=== PATIENT | male | born 1935 | race Caucasian/White ===

== ENCOUNTER → 2017-02-26 | Outpatient (CLI) | payer MEDICARE ==
[2017-02-26 13:22] LABS: ANION GAP 8 MEQ/L (5-15); AST (GOT) 15 U/L (15-37); BICARBONATE 25.5 MEQ/L (21.0-32.0); BLOOD UREA NITROGEN 12 MG/DL (7-18); CHLORIDE 104 MEQ/L (98-107); GLOMERULAR FILTRATION RATE 75 ML/MIN (>89); GLUCOSE,FASTING 103 MG/DL (74-99); POTASSIUM 4.3 MEQ/L (3.5-5.1); SODIUM (NA) 137 MEQ/L (136-145)
[2017-02-26 13:26] LABS: ALKALINE PHOSPHATASE 59 U/L (45-117); ALT (GPT) 21 U/L (12-78); HDL CHOLESTEROL 43.7 MG/DL (40.0-60.0); LDL CHOLESTEROL 103 MG/DL (0-99); TOTAL BILIRUBIN ADULT 0.8 MG/DL (0.2-1.0)
== END ==
LOC: PLAB 09:18
PROVIDERS: ATTEND Family Medicine
DX: E78.2 Mixed hyperlipidemia (principal); C43.59 Malignant melanoma of other part of trunk
CPT/HCPCS: 36415; 80053; 80061

== ENCOUNTER → 2017-11-21 | Outpatient (CLI) | payer MEDICARE ==
--- NOTE | 2017-11-26 08:55 | RSPPFT ---
DATE OF PROCEDURE:11/21/17 COMMENTS: VOLUMES DYNAMIC: FVC and FEV1 normal. STATIC: FRC, RV and TLC normal. FLOWS: FEV1% normal; FEF 25-75 very mildly reduced. DIFFUSION: Normal. FLOW VOLUME LOOP: Normal configuration. IMPRESSION: Essentially normal pulmonary functions. No significant obstruction just mild terminal airflow obstruction. There is no restriction, no response to bronchodilator. Diffusion is normal.
== END ==
LOC: HRSP 09:53
PROVIDERS: ATTEND Internal Medicine
DX: J45.909 Unspecified asthma, uncomplicated (principal)
CPT/HCPCS: 94060; 94618; 94726; 94729; 95012